=== PATIENT | female | born 1960 | race Caucasian/White ===

== ENCOUNTER 2017-05-15 12:01 | Inpatient (IN) | payer MEDICARE, MEDICAID ==
[~2017-05-15] VITALS: Ht 149.9 cm; Wt 63.5 kg
[2017-05-15] MEDS ORDERED: FUROSEMIDE 20 MG TABLET (12:22)
[2017-05-15] MEDS ORDERED: TOPIRAMATE 50 MG TABLET (12:22)
[2017-05-15] MEDS ORDERED: LEVOTHYROXINE 150 MCG TABLET (12:22)
[2017-05-15] MEDS ORDERED: TOBREX 0.3% EYE OINTMENT (12:22)
[2017-05-15] MEDS ORDERED: PROAIR HFA 90 MCG INHALER (12:22)
[2017-05-15] MEDS ORDERED: VIT D2 1.25 MG (50,000 UNIT) (12:22)
[2017-05-15] MEDS ORDERED: OXYCODONE-ACETAMINOPHEN 5-325 (12:22)
[2017-05-15] MEDS ORDERED: ALPR1TAB7 PO (12:23)
[2017-05-15] MEDS ORDERED: ESZO3TAB27 PO (12:23)
[2017-05-15] MEDS ORDERED: ONDANSETRON 4 MG/2 ML VIAL IV ONE (12:45)
[2017-05-15] MEDS ORDERED: IV NORMAL SALINE 1000 ML BAG IV ONE (12:45)
[2017-05-15] MEDS ORDERED: MORPHINE SULFATE 2 MG/1 ML DISP.SYRIN IV ONE (12:45)
[2017-05-15] MEDS ORDERED: MORPHINE SULFATE 4 MG/1 ML DISP.SYRIN ONE ×2 (12:56→15:15)
[2017-05-15] MEDS ORDERED: ONDANSETRON 4 MG/2 ML VIAL ONE ×2 (12:56→15:16)
[2017-05-15 13:07] LABS: BASOPHILS # (AUTO) 0.1 K/uL (0.0-8.0); EOSINOPHILS # (AUTO) 0.2 K/uL (0.0-0.7); EOSINOPHILS % (AUTO) 2.2 % (0.0-7.0); HEMATOCRIT 40.1 % (31.2-41.9); HEMOGLOBIN 13.1 g/dL (10.9-14.3); LYMPHOCYTES % (AUTO) 24.6 % (20.5-51.5); MEAN CORPUSCULAR HEMOGLOBIN 30.6 uug (24.7-32.8); MEAN CORPUSCULAR HGB CONC 33 g/dL (32.3-35.6); MEAN CORPUSCULAR VOLUME 93.5 fL (75.5-95.3); MONOCYTES # (AUTO) 0.5 K/uL (2.0-10.0); MONOCYTES % (AUTO) 5.8 % (0.0-11.0); NEUTROPHILS # (AUTO) 5.4 K/uL (1.8-8.9); NEUTROPHILS % (AUTO) 66.4 % (38.5-71.5); PLATELET COUNT (AUTO) 185 K/uL (179-408); RED BLOOD CELL COUNT(AUTO) 4.29 MIL/uL (3.63-4.92); WHITE BLOOD COUNT (AUTO) 8.1 K/uL (3.8-11.8)
[2017-05-15 13:12] LABS: *BILIRUBIN,URIN NEGATIVE (NEGATIVE); *BLOOD, URINE NEGATIVE (NEGATIVE); *CLARITY,URINE CLEAR (CLEAR); *COLOR,URINE YELLOW (YELLOW); *KETONES,URINE TRACE (NEGATIVE); *PROTEIN,URINE NEGATIVE (NEGATIVE); *UROBILINOGEN,URINE 0.2 E.U./dl (NORMAL); LEUKOCYTE ESTERASE ,URINE NEGATIVE (NEGATIVE); NITRITE, URINE NEGATIVE (NEGATIVE); UGLUCOSE NEGATIVE (NEGATIVE)
[2017-05-15 13:16] LABS: CREATININE 0.9 mg/dL (0.6-1.3); POTASSIUM 3.6 mmol/L (3.5-5.1)
[2017-05-15 13:18] LABS: BACTERIA,URINE FEW /HPF (NONE SEEN); CALCIUM OXALATE CRYSTALS,UR MODERATE /HPF (NONE SEEN); MUCUS,URINE FEW /LPF (0-FEW); RBC,URINE 0-3 /HPF (0-3); SQUAMOUS EPITHELIAL CELL,UR FEW /HPF (NONE SEEN)
[2017-05-15 13:21] LABS: BILIRUBIN,DIRECT 0.1 mg/dL (0.0-0.2); BILIRUBIN,TOTAL 0.4 mg/dL (0.2-1.0); TOTAL PROTEIN, SERUM 7.8 g/dL (6.4-8.2)
[2017-05-15] MEDS ORDERED: IPRATROPIUM BROMIDE 0.5 MG/2.5 ML NEBU NEB ONE (14:45)
[2017-05-15] MEDS ORDERED: ALBUTEROL SULFATE 2.5 MG/3 ML NEBU NEB ONE (14:45)
[2017-05-15] MEDS ORDERED: IPRATROPIUM BROMIDE 0.5 MG/2.5 ML NEBU ONE (14:50)
[2017-05-15] MEDS ORDERED: ALBUTEROL SULFATE 2.5 MG/3 ML NEBU ONE (14:50)
[2017-05-15] MEDS ORDERED: MORPHINE SULFATE 4 MG/1 ML DISP.SYRIN IV ONE (15:15)
[2017-05-15] MEDS ORDERED: ONDANSETRON IV *ER 4 MG/2 ML VIAL IV ONE (15:15)
--- NOTE | 2017-05-15 15:28 | NUR ---
pt transfered to floor in stable condition after the breathing tx done.
--- NOTE | 2017-05-15 15:30 | NUR ---
Received patient from ER via [facility] [facility], no apparent s/s of pain, distress, discomfort or SOB at this time. Pt is alert and oriented times 4. VS WNL.
[2017-05-15 15:49] VITALS: BP 133/75
[2017-05-15] MEDS ORDERED: FURO20TA4 PO (18:38)
[2017-05-15] MEDS ORDERED: LEVO150T8 PO (18:40)
[2017-05-15] MEDS ORDERED: OXYC-128 PO (18:41)
[2017-05-15] MEDS ORDERED: ALBU18HF2 INH (18:42)
[2017-05-15] MEDS ORDERED: TOPI50TA24 PO (18:43)
[2017-05-15] MEDS ORDERED: ERGO500014 PO (18:45)
[2017-05-15] MEDS ORDERED: ALBUTEROL SULFATE 8 GM HFA.AER.AD INH PRN (18:45)
[2017-05-15] MEDS ORDERED: ALPRAZOLAM 0.5 MG TABLET PO PRN (18:45)
[2017-05-15] MEDS ORDERED: FUROSEMIDE 20 MG TABLET PO PRN (18:45)
[2017-05-15] MEDS ORDERED: TOPIRAMATE 25 MG TABLET PO PRN (18:45)
[2017-05-15] MEDS ORDERED: ALBUTEROL SULFATE 2.5 MG/3 ML NEBU NEB PRN ×2 (19:00)
[2017-05-15] MEDS: MORPHINE SULFATE 2 MG/1 ML DISP.SYRIN IV PRN ×2 (19:29→22:08)
[2017-05-15] MEDS ORDERED: ACETAMINOPHEN 325 MG TABLET PO PRN (19:30)
--- NOTE | 2017-05-15 19:30 | NUR ---
Dr. Morocho in for ortho consult. Per , OK to use walker. XR L knee to be done in AM.
--- NOTE | 2017-05-15 19:32 | NUR ---
End of shift report: Dr Brown was contacted for admitting orders, continue with home medication plus Morphine Q4HRS PRN, Zofran Q6HRS PRN, and Tylenol 650mg Q6HRS PRN. Pt has been compliant with nursing care. No Hydration running at this time. Pt states she would like to be discharged to [facility] when she gets discharge. Pt is on a reg diet, tolerated meal well able to eat on her own. It was endorsed to the next shift that once pain medications are verified she would like pain management pills. Pt was seen by Dr. Morocho with orders for left knee x-ray
[2017-05-15 20:57] VITALS: BP 154/63
[2017-05-15] MEDS ORDERED: HOME MED MISCELLANEOUS XX SCH (21:00)
[2017-05-15] MEDS: ZOLPIDEM 5 MG TABLET PO PRN (22:08)
--- NOTE | 2017-05-16 00:07 | NUR ---
Patient awake but nauseous & anxious, requesting Xanax medication. notified.
[2017-05-16] MEDS ORDERED: ALPRAZOLAM 0.5 MG TABLET PO ONE (00:15)
[2017-05-16] MEDS: ONDANSETRON 4 MG/2 ML VIAL IV PRN ×2 (00:17→09:00)
--- NOTE | 2017-05-16 00:21 | NUR ---
Xanax 1 mg po given as ordered.
[2017-05-16 00:56] VITALS: BP 153/77
[2017-05-16 05:22] VITALS: BP 142/73
[2017-05-16] MEDS: LEVOTHYROXINE SODIUM 150 MCG TABLET PO SCH (06:51)
--- NOTE | 2017-05-16 07:15 | NUR ---
Patient remains asleep at this time, no signs of distress noted. Sinus rhythm on the monitor.
[2017-05-16] MEDS: MORPHINE SULFATE 2 MG/1 ML DISP.SYRIN IV PRN (09:00)
--- NOTE | 2017-05-16 09:00 | NUR ---
DR ESCALONA HERE TO SEE AND EXAMINE PATIENT WITH NO NEW ORDERS AT THIS TIME.
--- NOTE | 2017-05-16 10:48 | NUR ---
WITH COMPLAINTS OF OCCASSIONAL ANXIETY DR ESCALONA NOTIFIED WITH NEW ORDERS AND NOTED
[2017-05-16 11:35] VITALS: BP 122/63
[2017-05-16] MEDS: ALPRAZOLAM 0.5 MG TABLET PO PRN (11:45)
[2017-05-16] MEDS: OXYCODONE/APAP 5-325 MG TABLET PO PRN ×2 (15:20→20:30)
[2017-05-16 15:25] VITALS: BP 136/74
--- NOTE | 2017-05-16 15:37 | NUR ---
MEDICATED WITH PERCOCET PER PATIENTS REQUEST FOR PAIN LEFT LEG/HIP MADE COMFORTABLE AND WILL OBSERVE.
--- NOTE | 2017-05-16 19:00 | NUR ---
RECEIVED PATIENT IN BED ALERT ORIENTED, NO SOB NO CHEST PAIN, RYTHM SINUS RYTHM AT THIS TIME, CONT ON PAIN MANAGEMENT OF LEFT HIP AND LEFT LEG, CONT TO MONITOR, CONTINENT OF BOWEL AND BLADDER, CALL LIGHT WITHIN REACH.
[2017-05-16 20:22] VITALS: BP 148/74
[2017-05-16] MEDS: ZOLPIDEM 5 MG TABLET PO PRN (21:54)
[2017-05-17 00:12] VITALS: BP 143/71
[2017-05-17 04:00] VITALS: BP 155/66
[2017-05-17] MEDS: OXYCODONE/APAP 5-325 MG TABLET PO PRN ×4 (04:01→18:37)
[2017-05-17] MEDS: LEVOTHYROXINE SODIUM 150 MCG TABLET PO SCH (06:19)
--- NOTE | 2017-05-17 06:37 | NUR ---
PATIENT AWAKE, NO SOB NO CHEST PAIN, RYTHM SINUS RYTHM , CONT ON PAIN MANAGEMENT, AMBULATE PATIENT WITH WALKER, CALL LIGHT WITHIN REACH.
--- NOTE | 2017-05-17 07:35 | NUR ---
IN BED AWAKE ALERT AND ORIENTED DENIES PAIN OR DISCOMFORTS AT THIS TIME.ON ROOM AIR WITH NO SHORTNESS OF BREATH CALL LIGHT AND ALL PERSONAL BELONGINGS PLACED WITHIN EASY REACH AT THIS TIME.MADE COMFORTABLE AND WILL CONTINUE TO OBSERVE.
[2017-05-17 11:23] VITALS: BP 161/62
--- NOTE | 2017-05-17 11:23 | NUR ---
DR ESCALONA HERE TO SEE PATIENT WITH ORDER FOR CASE MANAGEMENT CONSULTS FOR POSSIBLE PLACEMENT AND NOTED.
[2017-05-17 15:47] VITALS: BP 138/50
--- NOTE | 2017-05-17 16:03 | NUR ---
CALLED THE [facility]UTE [facility] AND NOTIFIED THEM OF POSSIBLE ACUTE REHAB CANDIDATE SPOKE WITH REM STATED OKAY WILL CHECK PATIENT OUT.
--- NOTE | 2017-05-17 18:30 | NUR ---
MEDICATED FOR PAIN ORDERED PATIENT CONTINUES TO HAVE PAIN IN HER LEFT KNEE BUT STATED THAT PAIN MEDICATION HELPS MADE COMFORTABLE.
[2017-05-17 20:00] VITALS: BP 158/79
--- NOTE | 2017-05-17 20:00 | NUR ---
PT RECEIVED AAO X 4. NO COMPLAINTS/DISTRESS NOTED AT THIS TIME. TELE NOTED TO BE SINUS RHYTHM WITH HR IN THE 60'S. BED IN LOW, LOCKED POSITION. CALL LIGHT WITHIN REACH.
[2017-05-17] MEDS: ZOLPIDEM 5 MG TABLET PO PRN (20:44)
[2017-05-18] VITALS: BP 148/84
[2017-05-18] MEDS: ALPRAZOLAM 0.5 MG TABLET PO PRN (00:14)
[2017-05-18] MEDS: ONDANSETRON 4 MG/2 ML VIAL IV PRN ×2 (00:23→16:13)
[2017-05-18] MEDS: MORPHINE SULFATE 2 MG/1 ML DISP.SYRIN IV PRN ×3 (00:23→16:13)
[2017-05-18 04:00] VITALS: BP 122/85
--- NOTE | 2017-05-18 05:45 | NUR ---
AT THIS TIME, PT IS OBSERVED TO BE IN A STABLE CONDITION. NO S/S OF DISTRESS NOTED. PAIN MANAGEMENT PROVIDED. TELE NOTED TO BE SINUS RHYTHM WITH HR IN THE 70'S. BED IN LOW, LOCKED POSITION. CALL LIGHT WITHIN REACH. ALL MEDS ADMINISTERED ORDERED. WILL CONTINUE TO MONITOR.
[2017-05-18] MEDS: LEVOTHYROXINE SODIUM 150 MCG TABLET PO SCH (06:08)
--- NOTE | 2017-05-18 07:54 | NUR ---
RECEIVED PATIENT IN BED AWAKE ALERT AND ORIENTED STATED COMFORTABLE AT THIS TIME CALL LIGHTS AND PERSONAL BELONGINGS ARE PLACED WNL WILL CONTINUE TO OBSERVE.
[2017-05-18] MEDS ORDERED: ERGOCALCIFEROL 50,000 UNIT CAPSULE PO SCH (09:00)
[2017-05-18 11:28] VITALS: BP 142/63
[2017-05-18] MEDS: OXYCODONE/APAP 5-325 MG TABLET PO PRN (11:32)
--- NOTE | 2017-05-18 11:44 | NUR ---
PATIENT MEDICATED WITH PERCOCET FOR PAIN ORDERED AND WILL OBSERVE.
[2017-05-18] MEDS ORDERED: ALPR0.5T PO (11:52)
--- NOTE | 2017-05-18 11:55 | NUR ---
PATIENT SEEN AND EXAMINED BY DR CHILDS WITH ORDER TO DISCHARGE PATIENT TODAY AWAITING FOR THE FORMING MACHINE TENDER/MANAGER TREASURY TO CONFIRM THE FINAL DESTINATION.
--- NOTE | 2017-05-18 14:20 | NUR ---
CALLED THE [facility] AND REPORT GIVEN TO MCKENZIE FOR CONTINUING CARE.PATIENT AWARE AND SHE IS HER OWN RESPONSIBLE PATRY AND STATED THAT SHE WILL CALL HER SON AND INFORM HIM OF WHERE SHE WAS GOING.
[2017-05-18 15:20] VITALS: BP 148/69
--- NOTE | 2017-05-18 17:53 | NUR ---
PATIENT DISCHARGED PICKED UP BY THE AMBULANCE IN SATISFACTORY CONDITION WITH DISCHARGE INSTRUCTIONS AND ALL HER PERSONAL BELONGINGS.SHE WAS INSTRUCTED TO CONTINUE WITH PHYSICAL THERAPY ORDERED AND AFTER DISCHARGE FROM THE SNF FOLLOW UP WITH HER PRIMARY DOCTOR AND SHE EXPRESSED UNDERSTANDING.
== END 2017-05-18 17:55 | DRG 191 ==
LOC: ER 12:11 → TELE 15:22
PROVIDERS: ADMIT Internal Medicine; ATTEND Internal Medicine
DX: J44.1 Chronic obstructive pulmonary disease with (acute) exacerbation (principal); N39.0 Urinary tract infection, site not specified; K50.90 Crohn's disease, unspecified, without complications; J44.0 Chronic obstructive pulmonary disease with (acute) lower respiratory infection; E03.9 Hypothyroidism, unspecified; M17.12 Unilateral primary osteoarthritis, left knee; S72.302D Unspecified fracture of shaft of left femur, subsequent encounter for closed fracture with routine healing; X58.XXXD Exposure to other specified factors, subsequent encounter; J20.9 Acute bronchitis, unspecified; Z90.49 Acquired absence of other specified parts of digestive tract; Z85.038 Personal history of other malignant neoplasm of large intestine; Z98.84 Bariatric surgery status; G89.21 Chronic pain due to trauma; F41.9 Anxiety disorder, unspecified; G89.29 Other chronic pain
CPT/HCPCS: 36415; 70030-TC; 71045; 73551; 83605; 83690; 85025; 85730; 87040; 87086; 93005; A4663; J2270; J2405; J3590; J7030

== ENCOUNTER 2018-04-20 22:54 | Emergency (ER) | payer MEDICARE, MEDICAID ==
[~2018-04-20] VITALS: Ht 152.4 cm; Wt 63.5 kg
[~2018-04-20 22:54] MED LIST: ALBU18HF2 INH; ALPR0.5T PO; ESZO3TAB27 PO; FURO20TA4 PO; LEVO150T8 PO; OXYC-128 PO; TOPI50TA24 PO
[2018-04-20] MEDS ORDERED: MORPHINE SULFATE 2 MG/1 ML DISP.SYRIN IV ONE (23:30)
[2018-04-20] MEDS ORDERED: ONDANSETRON 4 MG/2 ML VIAL IV ONE (23:30)
[2018-04-20] MEDS ORDERED: ONDANSETRON 4 MG/2 ML VIAL ONE (23:38)
[2018-04-20] MEDS ORDERED: MORPHINE SULFATE 2 MG/1 ML DISP.SYRIN ONE (23:38)
[2018-04-20 23:52] LABS: BASOPHILS % (AUTO) 0.4 % (0.0-2.0); EOSINOPHILS # (AUTO) 0.2 K/uL (0.0-0.7); EOSINOPHILS % (AUTO) 2.4 % (0.0-7.0); HEMATOCRIT 35.3 % (31.2-41.9); HEMOGLOBIN 11.8 g/dL (10.9-14.3); LYMPHOCYTES # (AUTO) 1.7 K/uL (20.0-40.0); LYMPHOCYTES % (AUTO) 25.7 % (20.5-51.5); MEAN CORPUSCULAR HEMOGLOBIN 30.1 uug (24.7-32.8); MEAN CORPUSCULAR HGB CONC 33 g/dL (32.3-35.6); MEAN CORPUSCULAR VOLUME 90.3 fL (75.5-95.3); MONOCYTES # (AUTO) 0.5 K/uL (2.0-10.0); MONOCYTES % (AUTO) 7.2 % (0.0-11.0); NEUTROPHILS # (AUTO) 4.2 K/uL (1.8-8.9); NEUTROPHILS % (AUTO) 64.3 % (38.5-71.5); PLATELET COUNT (AUTO) 163 K/uL (179-408); RED BLOOD CELL COUNT(AUTO) 3.91 MIL/uL (3.63-4.92); WHITE BLOOD COUNT (AUTO) 6.5 K/uL (3.8-11.8)
[2018-04-21 00:04] LABS: *BILIRUBIN,URIN NEGATIVE (NEGATIVE); *BLOOD, URINE 3+ (NEGATIVE); *CLARITY,URINE TURBID (CLEAR); *KETONES,URINE TRACE (NEGATIVE); *UROBILINOGEN,URINE 0.2 E.U./dl (NORMAL); LEUKOCYTE ESTERASE ,URINE NEGATIVE (NEGATIVE); NITRITE, URINE NEGATIVE (NEGATIVE); UGLUCOSE NEGATIVE (NEGATIVE)
[2018-04-21 00:06] LABS: *COLOR,URINE BLOODY (YELLOW)
[2018-04-21 00:09] LABS: BACTERIA,URINE NONE SEEN /HPF (NONE SEEN); RBC,URINE TNTC /HPF (0-3); SQUAMOUS EPITHELIAL CELL,UR FEW /HPF (NONE SEEN); WBC,URINE 0-3 /HPF (0-3)
[2018-04-21 00:10] LABS: BILIRUBIN,DIRECT 0.1 mg/dL (0.0-0.2); BILIRUBIN,TOTAL 0.3 mg/dL (0.2-1.0); CREATININE 0.7 mg/dL (0.6-1.3); POTASSIUM 3.7 mmol/L (3.5-5.1); TOTAL PROTEIN, SERUM 6.8 g/dL (6.4-8.2)
[2018-04-21] MEDS ORDERED: NITROFURANTOIN/NITROFURAN MAC 100 MG CAPSULE ONE (00:42)
[2018-04-21 00:45] VITALS: BP 142/67
[2018-04-21] MEDS ORDERED: NITROFURANTOIN/NITROFURAN MAC 100 MG CAPSULE PO ONE (00:45)
== END 2018-04-21 00:46 | disposition home or self-care (01) ==
LOC: ER 22:54
DX: R31.0 Gross hematuria (principal); R33.9 Retention of urine, unspecified; E03.9 Hypothyroidism, unspecified; F17.200 Nicotine dependence, unspecified, uncomplicated; Z79.891 Long term (current) use of opiate analgesic; Z79.899 Other long term (current) drug therapy
CPT/HCPCS: 36415; 51700; 80048; 80076; 81001; 85025; 85730; 87086; 96374; 96375; 99284; J2270; J2405; A4217; A4663; J7030

== ENCOUNTER 2025-02-11 16:07 | Emergency (ER) | payer MEDICARE, OTHER ==
[~2025-02-11] VITALS: Ht 152.4 cm; Wt 61.2 kg
[~2025-02-11 16:07] MED LIST changes: -ESZO3TAB27 PO; +ESZO3TAB66 PO; +TOPI-97 PO; -TOPI50TA24 PO
[2025-02-11 16:11] VITALS: BP 174/80
[2025-02-11 16:29] LABS: PLATELET COUNT (AUTO) 155 K/uL (179-408); RED BLOOD CELL COUNT(AUTO) 4.18 MIL/uL (3.63-4.92); RED CELL DISTRIBUTION WIDTH 16.9 % (12.3-17.7); WHITE BLOOD COUNT (AUTO) 4.8 K/uL (3.8-11.8)
[2025-02-11 16:38] LABS: CREATININE 1.0 mg/dL (0.6-1.3); SODIUM SERUM 147.0 mmol/L (136-145); UREA NITROGEN, BLOOD 21.0 mg/dL (7-18)
[2025-02-11 16:43] LABS: ASPARTATE AMINOTRANSFERASE 15.0 U/L (15-37); TOTAL PROTEIN, SERUM 7.2 g/dL (6.4-8.2)
[2025-02-11 17:20] LABS: ETHANOL < 3 MG/DL (0-10)
[2025-02-11 18:02] LABS: *BILIRUBIN,URIN NEGATIVE (NEGATIVE); *BLOOD, URINE NEGATIVE (NEGATIVE); *COLOR,URINE YELLOW (YELLOW); *KETONES,URINE NEGATIVE (NEGATIVE); *PROTEIN,URINE NEGATIVE (NEGATIVE); *UROBILINOGEN,URINE 0.2 E.U./dl (NORMAL); LEUKOCYTE ESTERASE ,URINE NEGATIVE (NEGATIVE); NITRITE, URINE POSITIVE (NEGATIVE); UGLUCOSE NEGATIVE (NEGATIVE)
[2025-02-11 18:04] LABS: *CLARITY,URINE SLIGHTLY CLOUDY (CLEAR)
[2025-02-11 18:12] LABS: SQUAMOUS EPITHELIAL CELL,UR FEW /HPF (NONE SEEN)
[2025-02-11 18:14] LABS: *AMPHETAMINE, URINE NEGATIVE (NEGATIVE); *BARBITURATE, URINE NEGATIVE (NEGATIVE); *BENZODIAZEPINE, URINE NEGATIVE (NEGATIVE); *CANNABINOID, URINE NEGATIVE (NEGATIVE); *COCCAINE, URINE NEGATIVE (NEGATIVE); *OPIATE, URINE NEGATIVE (NEGATIVE); *PHENCYCLIDINE SCREEN,URINE NEGATIVE (NEGATIVE); FENTANYL, URINE NEGATIVE (NEGATIVE)
[2025-02-11 18:15] LABS: CALCIUM OXALATE CRYSTALS,UR FEW /HPF (NONE SEEN)
[2025-02-11 18:31] VITALS: BP 174/80; O2SAT 95
== END 2025-02-11 18:32 | disposition home or self-care (01) ==
LOC: ER 16:43
DX: R42 Dizziness and giddiness (principal); F17.210 Nicotine dependence, cigarettes, uncomplicated; E03.9 Hypothyroidism, unspecified; F41.9 Anxiety disorder, unspecified; Z79.890 Hormone replacement therapy; Z85.038 Personal history of other malignant neoplasm of large intestine; Z88.7 Allergy status to serum and vaccine; Z90.49 Acquired absence of other specified parts of digestive tract; Z98.84 Bariatric surgery status; Z79.899 Other long term (current) drug therapy; Z86.2 Personal history of diseases of the blood and blood-forming organs and certain disorders involving the immune mechanism
CPT/HCPCS: 36415; 84443; 85025; 85730; 87086; A4606; A4663; G0480